=== PATIENT | female | born 1975 | race Two or more races ===

== ENCOUNTER 2019-02-01 06:36 | Day surgery (SDC) | payer OTHER ==
[~2019-02-01 06:36] MED LIST: Buffered Lidocaine 1% SYRIN* 1 ML/SYRINGE INTRADERM ONE; Dexamethasone IV* 4 MG/ML 1 ML (4 MG) IV SLOW PU ONE; Dexamethasone IV* 4 MG/ML 1 ML (4 MG) ONE; Famotidine IV* 10 MG/ML 2 ML (20 mg) IV ONE; Famotidine IV* 10 MG/ML 2 ML (20 mg) ONE; Lactated Ringers 1000 ML Bag* 1,000 ML IV SCH
[2019-02-01] MEDS ORDERED: Lidocaine 1% INJ* 10 MG/ML 30 ML SDV ONE (06:53)
[2019-02-01] MEDS ORDERED: Dexamethasone IV* 4 MG/ML 1 ML (4 MG) ONE (06:53)
[2019-02-01] MEDS ORDERED: Buffered Lidocaine 1% SYRIN* 1 ML/SYRINGE INTRADERM ONE (06:53)
[2019-02-01] MEDS ORDERED: Famotidine IV* 10 MG/ML 2 ML (20 mg) ONE (06:53)
[2019-02-01] MEDS ORDERED: Bupivacaine 0.25% SDV PF* 10 ML VIAL INJ ONE (06:53)
[2019-02-01] MEDS ORDERED: Succinylcholine* 20 MG/ML 10 ML VIAL ONE (08:06)
[2019-02-01] MEDS ORDERED: Midazolam* 1 MG/ML 2 ML VIAL (2 MG) ONE (08:06)
[2019-02-01] MEDS ORDERED: Propofol* 10 MG/ML 20 ML BTL ONE (08:06)
[2019-02-01] MEDS ORDERED: Lidocaine 2% PF * 5 ML VIAL ONE (08:06)
[2019-02-01] MEDS ORDERED: fentaNYL* 50 MCG/ML 2 ML VIAL (100 MCG VIAL) ONE ×3 (08:06→11:32)
[2019-02-01] MEDS ORDERED: Naloxone* 0.4 MG/ML 1 ML VIAL IV PRN (08:34)
[2019-02-01] MEDS ORDERED: DiMENhydriNATE IV* 50 MG/ML VIAL IV PUSH PRN (08:34)
[2019-02-01] MEDS ORDERED: HYDROcodone/ACETAMIN 5-325 MG* 1 TAB PO PRN (08:34)
[2019-02-01] MEDS ORDERED: PROCHLORPERAZINE INJ 5 MG/ML 2 ML VIAL ONE (10:30)
[2019-02-01] MEDS ORDERED: Ondansetron INJ* 2 MG/ML VIAL ONE (10:37)
[2019-02-01] MEDS ORDERED: Phenylephrine 40 MCG/ML SYRINGE ONE (10:42)
[2019-02-01] MEDS: fentaNYL* 50 MCG/ML 2 ML VIAL (100 MCG VIAL) IV PRN ×2 (11:34→11:56)
[2019-02-01] MEDS ORDERED: oxyCODONE/Acetamin 5/325 MG* TAB ONE ×2 (12:38→17:02)
[2019-02-01] MEDS: oxyCODONE/Acetamin 5/325 MG* TAB PO PRN ×2 (12:39→17:04)
--- NOTE | 2019-02-01 13:21 | OP ---
OPERATIVE REPORT: DATE OF OPERATION: 02/01/19 DATE OF : 77 SERVICE: General Surgery. ATTENDING SURGEON: Linda Powers MD DIE OUT WORKER: Sandra Castañeda MD ANESTHESIOLOGIST: Dr. Jorge Martinez. ANESTHESIA: General endotracheal anesthesia. PRE-OP DIAGNOSIS: Multinodular goiter, atypical cells on FNA biopsy in right mid nodule. POST-OP DIAGNOSIS: Multinodular goiter, atypical cells on FNA biopsy in right mid nodule. OPERATIVE PROCEDURE: Right thyroid lobectomy and isthmusectomy. SPECIMEN: Isthmus nodules and right thyroid lobe. ESTIMATED BLOOD LOSS: Minimal, less than 10 cc. INDICATIONS FOR SURGERY: Ms. García is a very pleasant 43-year-old female with a history of a very large multinodular goiter that was causing her to have some compressive symptoms. She underwent FNA biopsy of 2 suspicious nodules and the right one showed atypical cells. Therefore she gave informed consent for a right thyroid lobectomy. She understood the risks, benefits and alternatives of the procedure and she wished to proceed. DESCRIPTION OF PROCEDURE: The patient was brought back to the operating room and placed on the operating table in the supine position. Sequential compression devices were placed in the bilateral lower extremities for DVT prophylaxis. Antibiotics were not administered. General endotracheal anesthesia was induced and the nerve monitor electrodes were attached to the patient. Next, a time out was performed, verified the patient's name, MR number and the procedure to be performed and then local anesthesia was administered to the mid neck, comprising of 1% lidocaine and 0.25% Marcaine. After this was done, the neck was prepped and draped in normal sterile fashion, and prior to begin the procedure, an additional time out was performed verifying the patient's name, MR number and the procedure to be performed which was the right-sided thyroid lobectomy. A midline transverse incision was made to the skin in the natural crease approximately 3 fingerbreadths above the sternal notch. The skin was divided down to the subcutaneous tissue and then the platysma was divided. The inferior and superior platysma flaps were then developed and then once this was done, a retractor was placed into the neck and the median raphe was identified and divided. Pushing the strap muscles apart, there was a large isthmus nodule immediately apparent, which was known given the preoperative ultrasound. The trachea was identified superior to this isthmus nodule and attachments were then divided. A tunnel was made underneath the thyroid and above the trachea, and then once this was done, the lower aspect of the isthmus nodule was then elevated and the miguel veins were then divided and the tunnel was created inferiorly heading towards the head. The isthmus nodule was very large and towards the left side of the thyroid and it was divided up off the trachea. In order to facilitate removal of the right thyroid lobe, the isthmus nodules were divided with a marking stitch orienting the right side towards the right thyroid lobe. Once this was done, it was carried off as specimen. Next, attention was turned towards developing the lateral aspect of the right thyroid lobe. The attachments of the strap muscles were bluntly dissected off, the middle thyroid vein was identified and divided with LigaSure. Next, the superior pole vessels were taken down after isolating them, dividing them and then tying with 2-0 silk suture. Once this was done, the upper lobe was much more free and able to be elevated up and out of the neck with some difficulty given how many nodules were located on the right side. Once this was done, the recurrent laryngeal nerve was identified and this entire course was traced out. The upper parathyroid was also identified in its normal anatomic location and then once the recurrent laryngeal nerve was totally identified and protected, the right thyroid lobe was able to be dissected off of the trachea and the ligament of Marroquin using a LigaSure. Once it was totally removed from the trachea, a stitch was used to juliocesar the upper pole and the specimen was carried off the table. After this, hemostasis was obtained in the neck and 10 cc of Tisseel was then placed into the neck and the strap muscles were then closed using interrupted 3-0 Vicryl sutures. The platysma was reapproximated using a 3-0 Vicryl sutures. A 4-0 Prolene suture was used to close the skin. A sterile dressing was then placed and the patient' s anesthesia was reversed and she was taken to the PACU in stable condition. At the end of the case, all counts were correct and I was present during the entirety of the case. [id number]/[facility] #: [id number] [facility]
[2019-02-01 17:19] VITALS: BP 134/89
== END 2019-02-01 17:21 | disposition home or self-care (01) ==
LOC: OR 06:36
PROVIDERS: ATTEND Surgery
DX: C73 Malignant neoplasm of thyroid gland (principal); E04.2 Nontoxic multinodular goiter; J45.909 Unspecified asthma, uncomplicated
CPT/HCPCS: 81025; 88307; A9270-GY; C1776; J0330; J0780; J1100; J2250; J2405; J2704; J3010; J3490